=== PATIENT | male | born 1985 | race Caucasian/White ===

== ENCOUNTER 2020-08-28 05:37 | Day surgery (SDC) | payer BC ==
[~2020-08-28] VITALS: Ht 193 cm; Wt 99.3 kg
[2020-08-28] VITALS (8 sets, daily range): BP systolic 121–149; BP diastolic 68–88; PULSE 70–125; TEMP 97–97.8
[2020-08-28] MEDS ORDERED: NORCO 325 MG-51 TAB PO (08:39)
--- NOTE | 2020-08-28 09:30 | NUR ---
The patient arrived back to [facility] from the recovery room at this time. The patient appears drowsy but arouses easily and answers questions appropriately. The patient has three incisions to his abdomen that are without redness or edema and covered with bandaids. The patient has scrotal support in place. The patient's post operative vital signs were started at this time. The patient denies any needs at this time. Call light is within reach. Will continue to monitor the patient.
--- NOTE | 2020-08-28 09:45 | NUR ---
The patient is sitting up on the cart at this time and appears more alert. The patient does report still feeling nauseated and agrees to try some lemon [place] soda at this time. Vital signs appear stable. Call light remains within reach. Will continue to monitor the patient.
--- NOTE | 2020-08-28 09:56 | NUR ---
The patient appears to be resting comfortably on the cart at this time. The patient's oxygen was weaned down to 1.5L per nasal cannula at this time. Vital signs appear stable. Will continue to monitor the patient.
--- NOTE | 2020-08-28 10:18 | NUR ---
The patient continues to report feeling nauseated and denies wanting to try anything to eat at this time due to this complaint. The patient's vital signs continue to appear stabel and the patient was weaned to room air at this time. The patient was given a PRN dose 6.25 mg phenergan IV at this time. Call light remains within reach. Will continue to monitor the patient.
--- NOTE | 2020-08-28 10:45 | NUR ---
The patient reports that the nausea is "better" and agrees to try some sahra crackers at this time. Vital signs appear stable. Call light remains within reach. Will continue to monitor the patient.
--- NOTE | 2020-08-28 11:15 | NUR ---
The patient was given a PRN dose of [place] one tab at this time. Vital signs appear stable. The patient agrees to ambulate to the bathroom and did so with the stand by assistance of one nurse and appeared to tolerate the activity well. The patient voided without difficulty. The nurse instructed the patient to get dressed and notify the staff when he is ready to review his discharge instructions.
--- NOTE | 2020-08-28 11:30 | NUR ---
Discharge instructions were reviewed with the patient at this time. He verbalized understanding and has no questions for the nurse at this time. The patient's IV to his right hand was removed and a pressure dressing was applied to the site. The patient is dressed and ready to be escorted out.
--- NOTE | 2020-08-28 11:35 | NUR ---
The patient was escorted out via wheelchair to a private vehicle by [facility]. The patient's belongings and discharge paperwork were sent with him. The patient's father is present to drive him home.
== END 2020-08-28 11:35 | disposition home or self-care (01) ==
LOC: SDCO 05:37
DX: K40.90 Unilateral inguinal hernia, without obstruction or gangrene, not specified as recurrent (principal)
CPT/HCPCS: C1781; J0690; J1100; J1170; J1885; J2250; J2405; J2550; J2704; J3010; J7120